=== PATIENT | female | born 2000 | race Two or more races ===

== ENCOUNTER → 2025-08-16 | Outpatient (CLI) | payer BC, SELFPAY ==
[2025-08-16 15:19] LABS: Collection Type, Urine Clean Catch
[2025-08-16 17:06] LABS: Amorphous Crystals,Urine Present (Absent); Bacteria,Urine 1+; Bilirubin,Urine Negative (Negative); Blood,Urine Negative (Negative); Color,Urine Yellow (Lt Yel-Yel); Glucose, Urine Negative (Negative); Ketones,Urine Negative (Negative); Leukocyte Esterase,Urine Positive (Negative); Nitrite,Urine Negative (Negative); PH,Urine 8.0 (5.0-7.0); Protein,Urine 1+ (Neg - Trace); RBC,Urine 3 /hpf (0-3); Specific Gravity,Urine 1.022 (1.001-1.035); Squamous Epithelial Cell,Urine 7 /hpf (0-5); Urobilinogen,Urine Negative mg/dL (0.0-1.0); WBC,Urine 14 /hpf (0-5)
[2025-08-16 17:14] LABS: Amphetamine/Methamp Scrn,U Negative (Negative); Barbiturate Screen,Urine Negative (Negative); Benzodiazepines Screen,Urine Negative (Negative); Benzoylecgonine Screen, Ur Negative (Negative); Fentanyl Screen,Urine Negative (Negative); Opiate Screen,Urine Negative (Negative); THC Screen,Urine Negative (Negative)
[2025-08-16 17:19] LABS: Clarity,Urine Cloudy (Clear/Hazy)
[2025-08-17 12:54] LABS: BVAG Candida Negative (Negative); Bacterial Vaginosis Markers Positive (Negative); Candida glabrata Negative (Negative); Candida krusei PCR Negative (Negative); Trichomonas Negative (Negative)
== END | disposition home or self-care (01) ==
LOC: SLDO 15:02
PROVIDERS: Referring Provider Specialist; Visit Provider Specialist
DX: Z34.81 Encounter for supervision of other normal pregnancy, first trimester (principal); B37.89 Other sites of candidiasis; N76.0 Acute vaginitis; A59.01 Trichomonal vulvovaginitis
CPT/HCPCS: 80307; 81001; 81514; 87086

== ENCOUNTER 2025-08-29 17:09 | Emergency (ER) | payer BC, SELFPAY ==
[2025-08-29 17:17] VITALS: BP 134/90; PULSE 114; RESP 19; TEMP 37.3; O2SAT 98; BMI 37.8
--- NOTE | 2025-08-29 17:19 | XR_ITS ---
Examination: Complete OB ultrasound, less than 14 weeks, transabdominal Date and time of exam: August 29, 2025, 1725 hrs. Indications: Severe nausea and vomiting beginning one month ago Technique: Obstetrical ultrasound images less than 14 weeks performed via transabdominal imaging Findings: A normal shaped single intrauterine gestation is present in the uterus. CRL 3.0 cm corresponds to 9 weeks 6 days gestational age Cardiac motion 169 bpm Ultrasonographic survey of visible and placental structures unremarkable. Amniotic fluid volume appears appropriate for this estimated gestational age. Ovaries obscured by bowel gas Impression: Viable intrauterine gestation 9 weeks 6 days.
--- NOTE | 2025-08-29 17:20 | PD.EDRME ---
Rapid Medical Screening Exam RME Arrival date/time: 08/29/25 17:09 24-year-old female presents the emergency dept today states she is approximately 11 weeks she reports she has had morning sickness for the last 5 weeks patient reports increased nausea last 4 days Chief Complaint: Nausea/Vomiting/Diarrhea
[2025-08-29] MEDS: METOCLOPRAMIDE INJ 5 MG/ML VIAL 2 ML 10 MG IM (17:24)
[2025-08-29 18:06] LABS: Basophils # (Auto) 0.1 Thou/mm3 (0.0-0.2); Basophils % (Auto) 0 % (0-2.5); Eosinophils # (Auto) 0.2 Thou/mm3 (0.0-0.5); Eosinophils % (Auto) 1 % (0-10); Hematocrit 40.2 % (36.0-46.0); Hemoglobin 13.5 g/dL (12.0-16.0); Immature Granulocytes Auto 0.09 Thou/mm3 (0.00-0.00); Lymphocytes # (Auto) 3.3 Thou/mm3 (1.0-4.8); Lymphocytes % (Auto) 17 % (10-50); Mean Corpuscular HGB Conc 33.6 g/dl (31.0-37.0); Mean Corpuscular Hemoglobin 27.3 pg (25.0-35.0); Mean Corpuscular Volume 81 fL (80-100); Monocytes # (Auto) 0.9 Thou/mm3 (0.0-0.8); Monocytes % (Auto) 5 % (0-12); Neutrophils # (Auto) 14.5 Thou/mm3 (1.8-7.7); Neutrophils % (Auto) 76 % (37-80); Nucleated Red Blood Cell # 0.00 Thou/mm3 (0.00-0.00); Nucleated Red Blood Cell % 0 /100 WBC (0); Platelet Count 349 Thou/mm3 (140-440); RDW Standard Deviation 40.4 fL (36.4-46.3); Red Blood Count 4.95 Miln/mm3 (4.00-5.20); White Blood Count 19.1 Thou/mm3 (3.6-11.0)
[2025-08-29 18:37] LABS: Alanine Aminotransferase 30 U/L (10-49); Albumin, Serum 4.4 gm/dL (3.5-5.0); Albumin/Globulin Ratio 1.5 (1.2-2.2); Alkaline Phosphatase 90 U/L (46-116); Anion Gap 13 (7-16); Aspartate Amino Transferase 22 U/L (0-34); BUN/Creatinine Ratio 7 Ratio (12-20); Bilirubin,Total 0.6 mg/dL (0.3-1.2); Blood Urea Nitrogen < 5 mg/dL (9-23); Calcium 9.4 mg/dL (8.3-10.6); Calcium (Corrected) 9.4 mg/dL (8.5-10.1); Carbon Dioxide 25.7 mMol/L (20.0-31.0); Chloride 102 mMol/L (98-107); Creatinine (Component) 0.7 mg/dL (0.6-1.3); Estimated Creatinine Clearance 134.6 mL/min (>60); Globulin 2.9 gm/dL (2.3-3.5); Glucose 93 mg/dL (74-106); Lipase 41 U/L (12-53); Magnesium 1.7 mg/dL (1.6-2.6); Osmolality,Calculated 278 (275-295); Potassium 3.4 mMol/L (3.4-5.1); Sodium 141 mMol/L (136-145); Total Protein 7.3 gm/dL (5.7-8.2); eGFR > 60 See Note
[2025-08-29] MEDS: SODIUM CHLORIDE 0.9% 1000 ML 1,000 ML 999 ML IV (18:56)
[2025-08-29 19:09] LABS: Beta HCG,Quantitative 60683 mIU/mL (<5.0)
--- NOTE | 2025-08-29 19:20 | PD.EDNV ---
Nausea/Vomit./Diarrhea-RME/HPI General Chief complaint: Nausea/Vomiting/Diarrhea Stated complaint: 11 WEEKS N/V X4 DAYS Time Seen by Provider: 08/29/25 18:22 Arrival date/time: 08/29/25 17:09 Limitations: no limitations RME / HPI RME / HPI Narrative: 08/29/25 17:09 24-year-old female presents the emergency dept today states she is approximately 11 weeks she reports she has had morning sickness for the last 5 weeks patient reports increased nausea last [address] Jimenez'edward Main ED Evaluation: 24yo female with no significant past medical history who is ~11 weeks gestation presents to the ED for complaints of nausea and vomiting x 4 days. Patient has been taking her promethazine as prescribed by her OB without improvement of symptoms. Patient denies any abdominal pain, vaginal bleeding, or any other associated symptoms. No previous surgeries. NKA. Related Data Previous Rx's ?Medication ?Instructions ?Recorded methylprednisolone 4 mg tablets in 4 mg PO DAILY #21 tabs 09/01/18 a dose pack Allergies Allergy/AdvReac Type Severity Reaction Status Date / Time No Known Allergies Allergy Verified 08/29/25 17:11 Review of Systems Review of Systems Systems Reviewed: All systems reviewed, normal except as documented Past Medical History Past Medical History NEUROLOGIC: Negative Neurological Disorders CARDIAC: Negative Cardiac Disorders or Congestive Heart Failure RESPIRATORY: Negative Chronic Obstructive Pulmonary Disease (COPD) GASTROINTESTINAL: Negative Gastrointestinal Disorders GENITOURINARY: Negative Genitourinary Disorders or Renal Disease REPRODUCTIVE: Negative Pelvic Inflammatory Disease MUSCULOSKELETAL: Positive Musculoskeletal Disorders ENDOCRINE: Negative Endocrine Disorders, Diabetes Mellitus Type 1 or Diabetes Mellitus Type 2 OTHER HISTORY: Negative Autoimmune Disease Family History FAMILY HISTORY: Negative Family Cardiac Disorders Surgical History SURGICAL: Negative Ear Surgery or Mastectomy Social History SMOKING STATUS: Never smoker ED Exam General Limitations: Present no limitations General appearance: Present alert and in no apparent distress Head Head exam: Present atraumatic Eye Eye exam: Present normal appearance, PERRL and EOMI ENT ENT exam: Present normal exam, normal oropharynx and mucous membranes moist Neck Neck exam: Present normal inspection, full ROM and trachea midline Chest Chest inspection: Present normal inspection and symmetric chest wall rise Respiratory Respiratory exam: Present normal lung sounds bilaterally Cardiovascular Cardiovascular exam: Present regular rate, normal rhythm and normal heart sounds Abdominal Exam Abdominal exam: Present soft and normal bowel sounds Extremities Exam Extremities exam: Present normal inspection and full ROM Back Exam Back exam: Present normal inspection and full ROM Neurological Exam Neurological exam: Present alert, oriented X3 and CN II-XII intact Psychiatric Psychiatric exam: Present normal affect and normal mood Skin Skin exam: Present warm, dry, intact and normal color Course Quality Measures none Orders Category Date Time Status Insert IV NOW Care 08/29/25 17:19 Active US OB <= 14 weeks fetus Stat Exams 08/29/25 17:19 Completed Beta HCG,Quantitative Stat Lab 08/29/25 17:49 Completed CBC Stat Lab 08/29/25 17:49 Completed Comprehensive Metabolic Panel Stat Lab 08/29/25 17:49 Completed Lipase Stat Lab 08/29/25 17:49 Completed Mag [Magnesium] Stat Lab 08/29/25 17:49 Completed UA [Urinalysis] Stat Lab 08/29/25 19:50 Completed Metoclopramide Inj [Reglan Inj] Med 08/29/25 17:19 Discontinued 10 mg IM X1 ONE Sodium Chloride 0.9% 1000 ml [Ns] 1,000 ml Med 08/29/25 17:19 Discontinued IV 999 mls/hr mg Hyd/Al Hyd/Rosanne Susp [Maalox Susp] Med 08/29/25 20:56 Discontinued 30 ml PO X1 ONE Vital Signs Vital signs: Vital Signs Temperature 99.1 F 08/29/25 17:17 Pulse Rate 114 H 08/29/25 17:17 Respiratory Rate 19 08/29/25 17:17 Blood Pressure 134/90 H 08/29/25 17:17 Pulse Oximetry (%) 98 08/29/25 17:17 Nausea/Vomiting/Diarrhea MDM Narrative MDM Narrative:: Scribe Attestation: 08/29/25 Jade Kim am scribing for and in the presence of Dr. Jimenez. Patient data External records reviewed:: [facility] previous records (Per chart review, patient was seen here on 04/06/24 for threatened .) Clinical information provided by:: patient Social determinants that could affect healthcare access:: none Patient has the following chronic illnesses:: none How is presenting disease/condition affected by chronic disease/condition?: no chronic disease Evaluation data The following diagnostics were reviewed and interpreted by me:: lab results and radiology exam(s) Lab and/or radiology exams considered but not ordered:: none Interpretation Summary: WBC 19.1, CMP normal, Lipase 41, Beta HCG 85823. UA contaminated. [facility] Report Signed Patient: ASHIA SHAH Record#: [id number] Birthdate: 2000 Age/Sex: 24 / F Location: [facility] Attending Dr: Ordering Physician: Tha MONSON),Will ANDRADE Date of Service: 08/29/25 Procedure(s): US OB <= 14 weeks fetus Accession Number(s): [id number] cc: Tha MONSON),Will ANDRADE; Raad Odell MD; Michelle Lozano MD~ Examination: Complete OB ultrasound, less than 14 weeks, transabdominal Date and time of exam: August 29, 2025, 1725 hrs. Indications: Severe nausea and vomiting beginning one month ago Technique: Obstetrical ultrasound images less than 14 weeks performed via transabdominal imaging Findings: A normal shaped single intrauterine gestation is present in the uterus. CRL 3.0 cm corresponds to 9 weeks 6 days gestational age Cardiac motion 169 bpm Ultrasonographic survey of visible and placental structures unremarkable. Amniotic fluid volume appears appropriate for this estimated gestational age. Ovaries obscured by bowel gas Impression: Viable intrauterine gestation 9 weeks 6 days. Dictated By: Raad Odell MD Signed By: <Electronically signed by Raad Odell MD in [place]> 08/29/25 1804 Medications / Prescriptions Medications / Prescriptions considered but not ordered:: none Medication administrations:: Medication Administration History Discontinued Medications Al Hydrox/Mg Hydrox/Simethicone (Mg Hyd/Al Hyd/Rosanne (Maalox Reg) Susp 30 Ml Udc) 30 ml PO X1 ONE Stop: 08/29/25 20:57 Sodium Chloride (Ns) 1,000 mls @ 999 mls/hr IV .Q1H1M ONE Stop: 08/29/25 18:19 Last Infusion: 08/29/25 19:52 Dose: Infused Documented By: Admin: 08/29/25 18:56 Dose: 999 mls/hr Documented By: SHA Metoclopramide HCl (Metoclopramide Inj 5 Mg/Ml Vial 2 Ml) 10 mg IM X1 ONE; Protocol Stop: 08/29/25 17:20 Last Admin: 08/29/25 17:24 Dose: 10 mg Documented By: SHA see above Consultations Consultation(s) initiated? (list below): No Diagnosis Nausea Differential Diagnosis: food poisoning, drug-induced nausea and vomiting, dehydration and other (electrolyte abnormality, vomiting in ) Most likely diagnosis given after review of the tests above:: see clinical impression below Admission Indicated Admission indicated?: not indicated Admission Request Was there a request for admission?: No Disposition Plan Disposition Plan: Discharge Discharge Attestation Discharge Attestation: The patient and all family members were given an opportunity to ask questions and understood the discharge instructions. Discharge instructions specifically effects, indications for sooner follow up or return to the emergency department, and the expected course of current diagnosis. Patient condition: Stable Discharge Plan Plan Patient Disposition: HOME (Self Care) Patient condition on transfer: Stable Prescriptions/Referrals Prescriptions/Med Rec: No Action methylprednisolone 4 mg tablets,dose pack 4 mg PO DAILY Qty: 21 0RF Referrals: Michelle Medina MD [Primary Care Provider, Family Practice] - In 1 week Problem List Clinical Impression: Nausea & vomiting, Confirmed intrauterine on ultrasound Patient/Caregiver Discharge Instructions Education Materials: ED Diet for Vomiting or ... Additional Instructions: Stay hydrated with Pedialyte and Gatorade. Talk to your primary care physician about any additional medications that you can take for the nausea. Ensure that you will follow-up with your primary or [facility] on Tuesday to get the results of the urine culture. You have elected not to be treated for your asymptomatic bacteriuria. Return to the emergency department sooner before Tuesday for any back pain, fevers, worse pain, vomiting, or any other concerns Print Language: Venezuelan Stand Alone Forms: Sandra Award Info., Patient Portal Info Letter
[2025-08-29 19:58] VITALS: BP 132/84; PULSE 88; RESP 14; TEMP 36.8; O2SAT 98
[2025-08-29 20:03] LABS: Collection Type, Urine Clean Catch
[2025-08-29 20:21] LABS: Bacteria,Urine 4+; Bilirubin,Urine 1+ (Negative); Blood,Urine Negative (Negative); Clarity,Urine Turbid (Clear/Hazy); Color,Urine Drk-Yellow (Lt Yel-Yel); Glucose, Urine Negative (Negative); Ketones,Urine 4+ (Negative); Leukocyte Esterase,Urine Positive (Negative); Nitrite,Urine Negative (Negative); PH,Urine 6.5 (5.0-7.0); Protein,Urine 2+ (Neg - Trace); RBC,Urine 14 /hpf (0-3); Specific Gravity,Urine 1.041 (1.001-1.035); Squamous Epithelial Cell,Urine 29 /hpf (0-5); Urobilinogen,Urine 8.0 mg/dL (0.0-1.0); WBC,Urine 35 /hpf (0-5)
[2025-08-29] MEDS: MG HYD/AL HYD/SIME (Maalox Reg) SUSP 30 ML UDC PO (21:10)
== END 2025-08-29 21:20 | disposition home or self-care (01) ==
PROVIDERS: Nurse Practitioner Primary Care; Emergency Provider Emergency Medicine; PCP Family Medicine
DX: O21.9 Vomiting of pregnancy, unspecified (principal); Z3A.09 9 weeks gestation of pregnancy
CPT/HCPCS: 36415; 76801; 80053; 81001; 83690; 83735; 84702; 85025; 96360; 96372; 99284; J2765; J7030; A9270

== ENCOUNTER → 2025-09-12 | Outpatient (CLI) | payer BC, SELFPAY ==
[2025-09-12 10:01] LABS: Misc Send Out* See Sep Rpt; Quantiferon-TB* See Sep Rpt
[2025-09-12 10:29] LABS: Basophils # (Auto) 0.0 Thou/mm3 (0.0-0.2); Basophils % (Auto) 0 % (0-2.5); Eosinophils # (Auto) 0.3 Thou/mm3 (0.0-0.5); Eosinophils % (Auto) 2 % (0-10); Hematocrit 35.1 % (36.0-46.0); Hemoglobin 12.1 g/dL (12.0-16.0); Immature Granulocytes Auto 0.11 Thou/mm3 (0.00-0.00); Lymphocytes # (Auto) 3.1 Thou/mm3 (1.0-4.8); Lymphocytes % (Auto) 18 % (10-50); Mean Corpuscular HGB Conc 34.5 g/dl (31.0-37.0); Mean Corpuscular Hemoglobin 27.8 pg (25.0-35.0); Mean Corpuscular Volume 81 fL (80-100); Monocytes # (Auto) 0.9 Thou/mm3 (0.0-0.8); Monocytes % (Auto) 5 % (0-12); Neutrophils # (Auto) 12.9 Thou/mm3 (1.8-7.7); Neutrophils % (Auto) 75 % (37-80); Nucleated Red Blood Cell # 0.00 Thou/mm3 (0.00-0.00); Nucleated Red Blood Cell % 0 /100 WBC (0); Platelet Count 302 Thou/mm3 (140-440); RDW Standard Deviation 42.5 fL (36.4-46.3); Red Blood Count 4.35 Miln/mm3 (4.00-5.20); White Blood Count 17.3 Thou/mm3 (3.6-11.0)
[2025-09-12 10:36] LABS: Glucose Estimated Average 108 mg/dL (80-131); Hemoglobin A1C 5.4 % Hgb (4.8-6.0)
[2025-09-12 10:54] LABS: Creatinine (Component) 0.5 mg/dL (0.6-1.3); Glucose 130 mg/dL (74-106); eGFR > 60 See Note
[2025-09-12 10:58] LABS: Hepatitis B Surface Antigen Non Reactive (Non React); Rubella, IgG Antibody Reactive (Immune)
[2025-09-12 11:15] LABS: Beta HCG,Quantitative 29365 mIU/mL (<5.0)
[2025-09-14 15:35] LABS: HCV RNA, PCR <15 NOT DETECTED IU/mL
[2025-09-16 06:40] LABS: HCV RNA, PCR Log IU <1.18 NOT DETECTED Log IU/mL; HIV Ag/Ab, 4th Gen NON-REACTIVE
== END | disposition home or self-care (01) ==
PROVIDERS: PCP Family Medicine; Referring Provider Specialist; Visit Provider Specialist
DX: Z34.81 Encounter for supervision of other normal pregnancy, first trimester (principal)
CPT/HCPCS: 36415; 82565; 82947; 83036; 84702; 85025; 86480; 86762; 86850; 86900; 86901; 87340; 87389; 87522